=== PATIENT | male | born 1980 | race American Indian/Alaskan Native ===

== ENCOUNTER 2018-11-11 20:25 | Emergency (ER) | payer SELFPAY ==
--- NOTE | 2018-11-11 21:42 | EDM.PDOC ---
ED HPI GENERAL MEDICAL PROBLEM - General Chief Complaint: Skin Complaint Stated Complaint: RASH ON BACK Time Seen by Provider: 11/11/18 21:40 Source of Information: Reports: Patient - History of Present Illness INITIAL COMMENTS - FREE TEXT/NARRATIVE: HISTORY AND PHYSICAL: History of present illness: []Patient presents with rash eczematous rash over his left shoulder and back and Flexeril surface of his elbows fever nausea vomiting chills sweats no chest pain shortness breath headache dizziness palpitation about a urine symptoms She has used cortisone 10 with limited benefit Review of systems: As per history of present illness and below otherwise all systems reviewed and negative. Past medical history: As per history of present illness and as reviewed below otherwise noncontributory. Surgical history: As per history of present illness and as reviewed below otherwise noncontributory. Social history: No reported history of drug or alcohol abuse. Family history: As per history of present illness and as reviewed below otherwise noncontributory. Physical exam: HEENT: Atraumatic, normocephalic, pupils reactive, negative for conjunctival pallor or scleral icterus, mucous membranes moist, throat clear, neck supple, nontender, trachea midline. Lungs: Clear to auscultation, breath sounds equal bilaterally, chest nontender. Heart: S1S2, regular, negative for clicks, rubs, or JVD. Abdomen: Soft, nondistended, nontender. Negative for masses or hepatosplenomegaly. Negative for costovertebral tenderness. Pelvis: Stable nontender. Genitourinary: Deferred. Rectal: Deferred. Extremities: Atraumatic, negative for cords or calf pain. Neurovascular unremarkable. Neuro: Awake, alert, oriented. Cranial nerves II through XII unremarkable. Cerebellum unremarkable. Motor and sensory unremarkable throughout. Exam nonfocal. Skin as per history of present illness otherwise unremarkable Diagnostics: [Clinical ] Therapeutics: [ betamethasone ] Impression: [ eczema/psoriasis ] Definitive disposition and diagnosis as appropriate pending reevaluation and review of above. - Related Data Allergies Allergy/AdvReac Type Severity Reaction Status Date / Time amoxicillin Allergy Rash Verified 07/19/18 15:02 Home Meds: Home Meds . [No Known Home Meds] 07/19/18 [History] Past Medical History Psychiatric History: Reports: Anxiety ED ROS GENERAL - Review of Systems Review Of Systems: See Below ED EXAM, SKIN/RASH Exam: See Below Departure - Departure Time of Disposition: 21:41 Disposition: Home, Self-Care 01 Condition: Good Clinical Impression: Eczema - Discharge Information Referrals: PCP,None [Primary Care Provider] - Additional Instructions: The following information is given to patients seen in the emergency department who are being discharged to home. This information is to outline your options for follow-up care. We provide all patients seen in our emergency department with a follow-up referral. The need for follow-up, as well as the timing and circumstances, are variable depending upon the specifics of your emergency department visit. If you don't have a primary care physician on staff, we will provide you with a referral. We always advise you to contact your personal physician following an emergency department visit to inform them of the circumstance of the visit and for follow-up with them and/or the need for any referrals to a consulting specialist. The emergency department will also refer you to a specialist when appropriate. This referral assures that you have the opportunity for follow-up care with a specialist. All of these measure are taken in an effort to provide you with optimal care, which includes your follow-up. Under all circumstances we always encourage you to contact your private physician who remains a resource for coordinating your care. When calling for follow-up care, please make the office aware that this follow-up is from your recent emergency room visit. If for any reason you are refused follow-up, please contact the [facility] emergency department at and asked to speak to the emergency department charge nurse.
== END 2018-11-11 22:12 | disposition home or self-care (01) ==
LOC: MW.ED 20:25
DX: L30.9 Dermatitis, unspecified (principal); Z88.1 Allergy status to other antibiotic agents
CPT/HCPCS: 99282

== ENCOUNTER 2020-03-01 06:35 | Emergency (ER) | payer BC ==
[2020-03-01] MEDS ORDERED: Acetaminophen/oxyCODONE 325-5 MG Tab PO ONE (06:54)
--- NOTE | 2020-03-01 07:37 | CR ---
Indication: Trauma Technique: A single view upright chest radiograph was performed as well as 4 additional dedicated images of the right rib cage. Comparison: None Findings: Heart size normal. Lungs clear. No pleural effusion or pneumothorax. Normal-appearing osseous structures. No visible rib fracture. Impression: Normal examination. No visible rib fracture. Dictated by Rajendra Rogel MD @ Mar 01 2020 7:34AM Signed by Dr. Rajendra Rogel @ Mar 01 2020 7:37AM
[2020-03-01] MEDS ORDERED: Ibuprofen 800 MG Tab PO ONE (07:51)
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
[2020-03-01] MEDS ORDERED: Ibuprofen 800 MG Tab ONE (08:29)
--- NOTE | 2020-03-01 08:34 | CR ---
Right shoulder: 3 views of the right shoulder were obtained. Comparison: No previous study. Glenohumeral joint and acromioclavicular joint appears within normal limits. No acute fracture or other bony abnormality is appreciated. Impression: 1. No abnormality is identified on 3 view right shoulder study. Diagnostic code #1 This report was dictated in MDT
== END 2020-03-01 08:56 | disposition home or self-care (01) ==
LOC: MW.ED 06:35
DX: S20.211A Contusion of right front wall of thorax, initial encounter (principal); S40.211A Abrasion of right shoulder, initial encounter; Z88.1 Allergy status to other antibiotic agents; V29.9XXA Motorcycle rider (driver) (passenger) injured in unspecified traffic accident, initial encounter
CPT/HCPCS: 71101; 73030; 99283; A9270

== ENCOUNTER 2020-03-15 14:13 | Emergency (ER) | payer SELFPAY ==
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
[2020-03-15] MEDS ORDERED: diphenhydrAMINE 50 MG Cap PO ONE (14:34)
[2020-03-15] MEDS ORDERED: Sulfamethoxazole/Trimethoprim 800-160 MG Tab PO ONE (14:34)
== END 2020-03-15 14:59 | disposition home or self-care (01) ==
LOC: MW.ED 14:13
DX: L20.9 Atopic dermatitis, unspecified (principal); Z88.1 Allergy status to other antibiotic agents
CPT/HCPCS: 99282; A9270

== ENCOUNTER 2021-07-26 14:18 | Emergency (ER) | payer SELFPAY ==
--- NOTE | 2021-07-26 15:23 | EDM.PDOC ---
ED HPI GENERAL MEDICAL PROBLEM - General Chief Complaint: Gastrointestinal Problem Stated Complaint: thightness in chest Time Seen by Provider: 07/26/21 14:47 Source of Information: Reports: Patient History Limitations: Reports: No Limitations - History of Present Illness INITIAL COMMENTS - FREE TEXT/NARRATIVE: Presents reporting upper abdominal pain. Patient states the pain started last night. He characterizes it as a "burp that does not want to come out". It is exacerbated by deep breaths and swallowing. He believes it may be acid reflux. No fever, cough, chest pain, shortness of breath, nausea, dysuria. He recalls that 1 year ago he had a similar episode and was diagnosed with acid reflux. He took omeprazole on a regular basis for a period of time which resolved his symptoms. He reports that in the last 2 days he drank quite a bit of alcohol each day which is uncharacteristic for him. On this occasion, he took some [id number] antacid last evening and today. It helped minimally. He is otherwise healthy without chronic medical problems. Epigastric Pain Score (Numeric/FACES): 4 - Related Data Allergies Allergy/AdvReac Type Severity Reaction Status Date / Time amoxicillin Allergy Rash Verified 07/26/21 14:39 Home Meds: Home Meds . [No Known Home Meds] 07/19/18 [History] Past Medical History - Past Health History Medical/Surgical History: Denies Medical/Surgical History Psychiatric History: Reports: Anxiety - Infectious Disease History Infectious Disease History: Reports: Chicken Pox Social & Family History - Family History Family Medical History: No Pertinent Family History - Tobacco Use Tobacco Use Status *Q: Never Tobacco User - Recreational Drug Use Recreational Drug Use: Yes Recreational Drug Type: Reports: Marijuana/Hashish Recreational Drug Use Frequency: Rarely ED ROS GENERAL - Review of Systems Review Of Systems: Comprehensive ROS is negative, except as noted in HPI. ED EXAM, GI/ABD - Physical Exam Exam: See Below Exam Limited By: No Limitations General Appearance: Alert, No Apparent Distress Ears: Normal External Exam Nose: Normal Inspection Throat/Mouth: Normal Inspection Head: Atraumatic, Normocephalic Neck: Normal Inspection Respiratory/Chest: No Respiratory Distress, Lungs Clear, Normal Breath Sounds Cardiovascular: Normal Peripheral Pulses, Regular Rate, Rhythm GI/Abdominal Exam: Soft, Non-Tender, No Distention Back Exam: Normal Inspection Extremities: Normal Inspection Neurological: Alert, Oriented, Normal Cognition Psychiatric: Normal Affect, Normal Mood Skin Exam: Warm, Dry, Intact, Normal Color, No Rash Lymphatic: No Adenopathy Course - Vital Signs Last Recorded V/S: Last Vital Signs Temp 36.6 C 07/26/21 14:44 Pulse 93 07/26/21 14:44 Resp 16 07/26/21 14:44 BP 166/92 H 07/26/21 14:44 Pulse Ox 96 07/26/21 14:44 - Orders/Labs/Meds Labs: Laboratory Tests 07/26/21 07/26/21 Range/Units 15:24 15:24 WBC 13.69 H (4.0-11.0) K/uL RBC 5.07 (4.50-5.90) M/uL Hgb 15.6 (13.0-17.0) g/dL Hct 45.2 (38.0-50.0) % MCV 89.2 (80.0-98.0) fL MCH 30.8 (27.0-32.0) pg MCHC 34.5 (31.0-37.0) g/dL RDW Std Deviation 43.7 (28.0-62.0) fl RDW Coeff of Fabiola 14 (11.0-15.0) % Plt Count 217 (150-400) K/uL MPV 9.70 (7.40-12.00) fL Neut % (Auto) 74.1 (48.0-80.0) % Lymph % (Auto) 17.0 (16.0-40.0) % Leon % (Auto) 7.7 (0.0-15.0) % Eos % (Auto) 1.0 (0.0-7.0) % Baso % (Auto) 0.2 (0.0-1.5) % Neut # (Auto) 10.1 H (1.4-5.7) K/uL Lymph # (Auto) 2.3 (0.6-2.4) K/uL Leon # (Auto) 1.1 H (0.0-0.8) K/uL Eos # (Auto) 0.1 (0.0-0.7) K/uL Baso # (Auto) 0.0 (0.0-0.1) K/uL Nucleated RBC % 0.0 /100WBC Nucleated RBCs # 0 K/uL Sodium 139 (136-148) mmol/L Potassium 4.0 (3.5-5.1) mmol/L Chloride 102 (98-107) mmol/L Carbon Dioxide 30.5 (21.0-32.0) mmol/L BUN 10 (7.0-18.0) mg/dL Creatinine 1.0 (0.8-1.3) mg/dL Est Cr Clr Drug Dosing 105.63 mL/min Estimated GFR (MDRD) > 60.0 ml/min Glucose 109 H (74-106) mg/dL Calcium 9.3 (8.5-10.1) mg/dL Total Bilirubin 0.7 (0.2-1.0) mg/dL AST 25 (15-37) IU/L ALT 29 (14-63) IU/L Alkaline Phosphatase 136 H (46-116) U/L Troponin I < 0.050 (0.000-0.056) ng/mL Total Protein 7.6 (6.4-8.2) g/dL Albumin 3.5 (3.4-5.0) g/dL Globulin 4.1 H (2.6-4.0) g/dL Albumin/Globulin Ratio 0.9 (0.9-1.6) Amylase 3 L (25-115) U/L Lipase 108 (73-393) U/L Meds: Medications Discontinued Medications Generic Name Dose Route Start Last Admin Trade Name Freq PRN Reason Stop Dose Admin Alum [place]/Mag [place]/Simeth XS 0 ml 07/26/21 16:27 07/26/21 16:42 15 ml/ Lidocaine HCl 5 ml PO 07/26/21 16:28 20 each ONETIME ONE Administration - Re-Assessments/Exams Free Text/Narrative Re-Assessment/Exam: 07/26/21 17:35 The patient states that he has trouble taking pills but that he would try Nexium OTC. He did not care for the GI cocktail because it made his mouth and throat kind of numb--it was somewhat palliative for his epigastric pain. Departure - Departure Time of Disposition: 17:36 Disposition: Home, Self-Care 01 Condition: Good Clinical Impression: Acid reflux disease - Discharge Information Forms: ED Department Discharge Additional Instructions: The following information is given to patients seen in the emergency department who are being discharged to home. This information is to outline your options for follow-up care. We provide all patients seen in our emergency department with a follow-up referral. The need for follow-up, as well as the timing and circumstances, are variable depending upon the specifics of your emergency department visit. If you don't have a primary care physician on staff, we will provide you with a referral. We always advise you to contact your personal physician following an emergency department visit to inform them of the circumstance of the visit and for follow-up with them and/or the need for any referrals to a consulting specialist. The emergency department will also refer you to a specialist when appropriate. This referral assures that you have the opportunity for follow-up care with a specialist. All of these measure are taken in an effort to provide you with optimal care, which includes your follow-up. Under all circumstances we always encourage you to contact your private physician who remains a resource for coordinating your care. When calling for follow-up care, please make the office aware that this follow-up is from your recent emergency room visit. If for any reason you are refused follow-up, please contact the [facility] Emergency Department at and asked to speak to the emergency department charge nurse. 1. Make an appointment in a family practice clinic to establish care and for further evaluation and management of your acid reflux/epigastric pain. 2. Take Nexium [id number] once daily, 30 minutes before breakfast with 1/2 glass of water. 3. Return promptly for chest pain, shortness of breath, fever, vomiting and not keeping down oral fluids [facility] [address] [place] [address] [id number] [address] [address] Sepsis Event Note (ED) - Evaluation Sepsis Screening Result: No Definite Risk - Focused Exam Vital Signs: Vital Signs Temp Pulse Resp BP Pulse Ox 07/26/21 14:44 36.6 C 93 16 166/92 H 96
--- NOTE | 2021-07-26 15:40 | PCM.EKG ---
#1 Interpretation EKG Date: 07/26/21 Time: 15:28 Rhythm: NSR Rate (Beats/Min): 95 ST-T: Normal
[2021-07-26 16:08] LABS: BLOOD UREA NITROGEN,BUN 10 mg/dL (7.0-18.0); CARBON DIOXIDE,CO2 30.5 mmol/L (21.0-32.0); CHLORIDE,CL 102 mmol/L (98-107); GLUCOSE RANDOM 109 mg/dL (74-106); LIPASE 108 U/L (73-393); SODIUM,NA 139 mmol/L (136-148)
[2021-07-26] MEDS ORDERED: Alum Hydro/Mag Hydro/Simeth XS 15 ML, Lidocaine 2% 5 ML PO ONE ×2 (16:27)
--- NOTE | 2021-07-26 17:19 | CR ---
INDICATION: epigastric pain TECHNIQUE: Chest 2 views. COMPARISON: 12/21/19 FINDINGS: Cardiovascular and mediastinum: Heart size and vasculature are normal in caliber and appearance. Mediastinum is within normal limits. Lungs and pleural spaces: Lungs are clear. No sign of infiltrate or mass. No sign of pleural effusion. No pneumothorax. Bones and soft tissues: No significant findings. IMPRESSION: Unremarkable chest. Dictated by: Huy Pablo MD @ 07/26/2021 17:17:43 (Electronically Signed)
== END 2021-07-26 17:56 | disposition home or self-care (01) ==
LOC: MW.ED 14:18
DX: K21.9 Gastro-esophageal reflux disease without esophagitis (principal); Z88.0 Allergy status to penicillin
CPT/HCPCS: 36415; 71046; 80053; 82150; 83690; 84484; 85025; 99284; A9270